=== PATIENT | female | born 1950 | race Asian ===

== ENCOUNTER 2016-09-06 17:23 | Emergency (ER) | payer OTHER ==
[~2016-09-06] VITALS: Wt 77.3 kg
[2016-09-06] MEDS ORDERED: ACET500C5 PO (18:05)
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
[2016-09-06] MEDS ORDERED: NEOM28OI TP (18:44)
[2016-09-06] MEDS ORDERED: LIDOCAINE 4% CR TOP ONE (19:00)
== END 2016-09-06 18:55 | disposition home or self-care (01) ==
LOC: FTE 17:23
DX: S29.019A Strain of muscle and tendon of unspecified wall of thorax, initial encounter (principal); V49.40XA Driver injured in collision with unspecified motor vehicles in traffic accident, initial encounter
CPT/HCPCS: 99283